=== PATIENT | female | born 1970 | race Caucasian/White ===

== ENCOUNTER 2016-12-15 03:23 | Inpatient (IN) | payer OTHER, SELFPAY ==
[~2016-12-15] VITALS: Ht 172.7 cm; Wt 77.3 kg
[~2016-12-15 03:23] MED LIST: /AMLO25TA PO; /TIOT18INH INH; ACET65TA OR; ALBUTEROL INH INH; AMBI10TA PO; AMBIEN PO; ASPI81TA90 PO; BISA10SU30 PR; BUPROPION PO; BUSPAR PO; CLON0.5T PO; COLA100C2 PO; COMBIN INH; COMBIVENT INH; DEPA250T32 PO; DIPHENHYDRAMINE PO; DOXY-197 PO; DOXY150C PO; DOXY75CA3 PO; DUONSOL INH; FIORICET; FLONASE INH; GUAI200T PO; IBUP200T2 PO; IPRATROPIUM ALBUT INH; KLON0.5T PO; LEVA500T OR; LEVO750T PO; LIDO1DIS2 TD; LYRICA PO; MIRALAX PO; MOM30SS PO; MOTR200T44 PO; MOTRIN PO; MUCI600T34 PO; MUCINEX PO; NEUR300C PO; NICOTINE TD TOP; PERC5TAB8 PO; PERCOCET PO; PHEN 25 PO; PRED10PA PO; PRED10TA PO; PRED10TA2 OR; PRED10TA2 PO; PRED20TA OR; PRED20TA PO; PRED50TA OR; PRED50TA2 PO; PRED5SOL2 PO; PRED5TAB OR; PRIL40CA PO; PROM-190 PO; PROZ20CA PO; SENO8.6T5 OR; SENO8.6T9 PO; SING10TA31 PO; SKEL800T5 PO; SUDAFED PO; SYMB80AE IN; SYMB80AE INH; SYMB80INH INH; TESS100C PO; THEOPHYLLINE PO; TIOT18INH INH; TIZA4CAP PO; TRAZ100T PO; TRAZO50TA PO; VIBR100C PO; XANA0.5T PO; XANAFLEX PO; XOPEAER INH; ZITH500T OR; ZONI50CA PO; [UNRECOGNIZED DRUG - CODE] INH; [UNRECOGNIZED DRUG - CODE] PO; ventolin neb INH
[2016-12-15] MEDS ORDERED: MAG SULF 1GM/100ML (MAG RUN) 1 GM in APPROPRIATE DILUENT 1 EA IV ONE (03:45)
[2016-12-15] MEDS ORDERED: methylPREDNISolone INJ 125 MG/2 ML VIAL (J2930) IV ONE (03:45)
[2016-12-15] MEDS: IPRATROPIUM 0.5MG/ALBUTEROL 2.5MG INH SOL UD 3ML (DUONEB)(J7620) NEB PRN (03:46)
[2016-12-15 04:20] LABS: BASO # 0.1 K/mm3 (0.0-0.2); BASO % 0.8 % (0.0-1.0); EOS # 0.7 K/mm3 (0.0-0.50); EOS % 8.5 % (0.0-3.0); LARGE UNSTAINED CELL # 0.2 K/mm3 (0.0-0.4); LARGE UNSTAINED CELL % 2.7 % (0.0-4.0); LYMPH # 2.7 K/mm3 (1.5-4.5); LYMPH % 32.3 % (24.0-44.0); MEAN CORPUSCULAR HEMOGLOBIN 29.5 pg (27.0-33.0); MEAN CORPUSCULAR HGB CONC 31.9 g/dl (32.0-36.5); MEAN CORPUSCULAR VOLUME 92.6 fl (80.0-96.0); MONO # 0.6 K/mm3 (0.0-0.8); MONO % 7.4 % (0.0-5.0); NEUTROPHILS # 3.7 K/mm3 (1.8-7.7); NEUTROPHILS % 48.3 % (36.0-66.0); PLATELET COUNT, AUTOMATED 517 k/mm3 (150-450); WHITE BLOOD COUNT 7.7 K/mm3 (4.0-10.0)
[2016-12-15 04:45] LABS: ANION GAP 8 MEQ/L (8-16); BLOOD UREA NITROGEN 12 MG/DL (7-18); CALCIUM LEVEL 8.5 MG/DL (8.5-10.1); CARBON DIOXIDE LEVEL 21 MEQ/L (21-32); CHLORIDE LEVEL 113 MEQ/L (98-107); CREATININE FOR GFR 0.48 MG/DL (0.55-1.02); GLOMERULAR FILTRATION RATE > 60.0 (>58); GLUCOSE, FASTING 98 MG/DL (70-105); POTASSIUM SERUM 4.1 MEQ/L (3.5-5.1); SODIUM LEVEL 142 MEQ/L (136-145)
[2016-12-15 05:18] LABS: ABG BASE EXCESS -4.9 (-2.0-2.0); ABG PARTIAL PRESSURE CO2 31.6 mmHg (35.0-45.0); ABG PARTIAL PRESSURE O2 82.2 mmHg (75.0-100.0); ABG STANDARD HCO3 20.4 MEQ/L (22.0-26.0); ABG pH (ARTERIAL) 7.398 UNITS (7.350-7.450)
[2016-12-15] MEDS ORDERED: ALBU17IN INH (05:39)
[2016-12-15] MEDS ORDERED: ASPI1TAB15 PO (05:39)
[2016-12-15] MEDS ORDERED: AMLO5TAB2 PO (05:39)
[2016-12-15] MEDS ORDERED: OXYC1TAB23 PO (05:39)
[2016-12-15] MEDS ORDERED: RANI150T PO (05:39)
[2016-12-15] MEDS ORDERED: IPRASOL4 INH (05:39)
[2016-12-15] MEDS ORDERED: CLON0.5T PO (05:39)
[2016-12-15] MEDS ORDERED: GABA600T PO (05:39)
[2016-12-15] MEDS ORDERED: DEXT75EL PO (05:39)
[2016-12-15] MEDS ORDERED: PROM25TA PO (05:39)
[2016-12-15] MEDS ORDERED: COMBAER6 INH (05:39)
[2016-12-15] MEDS ORDERED: MORPHINE 2 MG/ML 1ML SYRINGE IV ONE ×2 (05:45→19:45)
[2016-12-15] MEDS: NS 1,000 ML IV SCH ×2 (06:14→20:07)
[2016-12-15] MEDS ORDERED: IPRATROPIUM 0.5MG/ALBUTEROL 2.5MG INH SOL UD 3ML (DUONEB)(J7620) NEB PRN (06:15)
[2016-12-15] MEDS ORDERED: zolPIDEM TARTRATE 10MG TAB PO PRN ×2 (06:15→07:00)
[2016-12-15] MEDS ORDERED: ACETAMINOPHEN TAB 650MG DOSE (2X325MG) PO PRN (06:15)
[2016-12-15] MEDS: LevoFLOXacin IV 500 MG in APPROPRIATE DILUENT 1 EA IV SCH (06:42)
[2016-12-15] MEDS ORDERED: DEXTROMETHORPHAN 5 ML SYRUP (ROBITUSSIN PEDIATRIC COUGH) PO PRN (07:00)
[2016-12-15] MEDS ORDERED: PERCOCET 5MG/325MG TAB PO PRN (07:00)
[2016-12-15] MEDS ORDERED: PROMETHAZINE 25 MG TAB PO PRN (07:00)
[2016-12-15] MEDS: PERCOCET 5MG/325MG TAB PO PRN ×3 (07:26→21:56)
[2016-12-15] MEDS: methylPREDNISolone INJ 40 MG/1 ML VIAL (J2920) IV SCH ×4 (07:27→23:05)
[2016-12-15 07:29] LABS: ERYTHROCYTE SEDIMENTATION RATE 15 mm/hr (0-20)
--- NOTE | 2016-12-15 07:31 | HPE ---
DATE OF ADMISSION: 12/15/2016 PRIMARY CARE PROVIDER: Dr. Escobar ATTENDING PHYSICIAN: Dr. Colmenares CHIEF COMPLAINT: Worsening shortness of breath and wheezing. HISTORY OF THE PRESENT ILLNESS: The patient is a 46-year-old white female with a history of asthma as well as chronic obstructive pulmonary disease (COPD), presented to the emergency room (ER) with worsening shortness of breath and wheezing. The history is provided by herself. Per the patient, she smoked a few cigarettes a day for many years and quit recently. She has a history of asthma as well as COPD, but she does not need oxygen supplement routinely. She stated she has 11 times intubation in the past for asthma and COPD exacerbation. She states in the last few weeks, she developed coughing, shortness of breath and wheezing, and she tried to use her inhaler and nebulizer, which did not help much. She states yesterday her breathing became very difficult, and she decided to come to the ER. In the ER, she received multiple nebulizer treatments as well as IV steroids and IV magnesium (mag) sulfate and she feels better, but still wheezing, so medicine service was called for admission. REVIEW OF SYSTEMS: Denies fever. No chills. No headache. No blurred vision. Positive shortness of breath and wheezing and mild cough. No phlegm. No runny nose. No nausea, no vomiting. She feels chest tight and pain, particularly when coughing or deep breathing. No abdominal pain. No diarrhea. No tingling, numbness or weakness in the arms or lower extremities. All other systems were reviewed but negative. PAST MEDICAL HISTORY: 1. Asthma and COPD. 2. Acid reflux. 3. Chronic pain and fibromyalgia. 4. Degenerative joint disease (DJD). PAST SURGICAL HISTORY: 1. Tubal ligation. 2. Splenectomy. 3. Multiple intubation. FAMILY HISTORY: Mom had a history of COPD. ALLERGIES: No known drug allergies. MEDICATIONS: - Ambien 10 mg by mouth for sleep - ibuprofen as needed - Spiriva once a day - Symbicort twice a day - Percocet one tablet every 6 hours as needed - aspirin 81 mg by mouth daily - clonazepam as needed - amlodipine 5 mg by mouth daily - Neurontin 600 mg by mouth three times a day - ranitidine 150 mg by mouth daily PHYSICAL EXAMINATION: VITAL SIGNS: Temperature 98, heart rate 100, respirations 16, blood pressure 120/60, oxygen saturation is 95% on two liters oxygen supplement. GENERAL: She is awake, alert, oriented times three. She is in moderate respiratory distress. HEENT: Atraumatic. Pupils equal, round, reactive to light. No jaundice. Extraocular muscles intact. Ear, nose and throat are normal. No ulcer, no inflammation to mouth, mouth mucosa a little bit dry. NECK: No jugular venous distention (JVD). No bruits. LUNGS: Diffuse wheezing. No crackles. HEART: S1, S2, regular. Mild tachycardia. ABDOMEN: No murmur. Abdomen soft. Bowel sounds positive. Nontender. LOWER EXTREMITIES: She does not have edema in her bilateral lower extremities. NEUROLOGIC: Nonfocal. SKIN: No rash. PSYCHOLOGIC: No acute psychosis. DIAGNOSTIC AND LAB STUDIES: Chest x-ray, CBC and CMP reviewed. IMPRESSION: 1. Acute respiratory failure. 2. Chronic obstructive pulmonary disease and asthma exacerbation. 3. Fibromyalgia and chronic pain. 4. Acid reflux. PLAN: The patient will be admitted to medical-surgical floor. I will treat her with IV steroids, nebulizer and antibiotics for asthma and COPD exacerbation. Will continue her home medications.
[2016-12-15] MEDS: IPRATROPIUM 0.5MG/ALBUTEROL 2.5MG INH SOL UD 3ML (DUONEB)(J7620) NEB SCH ×4 (07:44→20:00)
--- NOTE | 2016-12-15 08:26 | ECGEPIP ---
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
--- NOTE | 2016-12-15 08:47 | REP ---
Clinical: Dyspnea and cough . Comparison: 11/28/2016 . Technique: PA and lateral. Findings: The mediastinum and cardiac silhouette are normal. The lung cano are clear and without acute consolidation, effusion, or pneumothorax. The skeletal structures are intact and normal. Impression: 1. No acute cardiopulmonary process. Signed by Fco Mays MD 12/15/2016 08:37 A
[2016-12-15] MEDS ORDERED: GABAPENTIN 300 MG CAP PO SCH (09:00)
[2016-12-15] MEDS: TIOTROPIUM INHALER/CAPSULE (SPIRIVA) INH SCH (09:40)
[2016-12-15] MEDS: SYMBICORT 80/4.5MCG INHALER 6GM INH SCH ×2 (09:40→19:24)
[2016-12-15] MEDS: ENOXAPARIN 40 MG/0.4 ML SYRINGE (J1650) SC SCH (09:41)
[2016-12-15] MEDS: clonazePAM 0.5 MG TAB PO SCH ×2 (09:41→20:07)
[2016-12-15] MEDS: amLODIPine 5 MG TAB PO SCH (09:42)
[2016-12-15] MEDS: ASPIRIN 81 MG ENTERIC TAB PO SCH (09:42)
[2016-12-15] MEDS: FAMOTIDINE 20 MG TAB PO SCH (09:42)
[2016-12-15 12:35] VITALS: BP 132/79
[2016-12-15] MEDS ORDERED: DEXTROMETHORPHAN 60MG/10ML SUSP 90ML BTL(DELSYM) PO PRN ×2 (17:15)
[2016-12-15] MEDS: GABAPENTIN 300 MG CAP PO SCH ×2 (17:16→20:06)
[2016-12-15 19:25] VITALS: BP 135/76
[2016-12-15 22:00] VITALS: BP 121/62
[2016-12-15] MEDS ORDERED: ALPRAZolam 0.5 MG TAB PO PRN (22:45)
[2016-12-16] MEDS: IPRATROPIUM 0.5MG/ALBUTEROL 2.5MG INH SOL UD 3ML (DUONEB)(J7620) NEB SCH (05:37)
[2016-12-16] MEDS: methylPREDNISolone INJ 40 MG/1 ML VIAL (J2920) IV SCH (05:58)
[2016-12-16] MEDS: LevoFLOXacin IV 500 MG in APPROPRIATE DILUENT 1 EA IV SCH (05:59)
[2016-12-16] MEDS: PERCOCET 5MG/325MG TAB PO PRN ×2 (05:59→10:08)
[2016-12-16 06:00] VITALS: BP 123/65
[2016-12-16 06:20] LABS: MEAN CORPUSCULAR HEMOGLOBIN 29.4 pg (27.0-33.0); MEAN CORPUSCULAR HGB CONC 30.9 g/dl (32.0-36.5); MEAN CORPUSCULAR VOLUME 94.9 fl (80.0-96.0); RED CELL DISTRIBUTION WIDTH 17.1 % (11.5-14.5); WHITE BLOOD COUNT 13.2 K/mm3 (4.0-10.0)
[2016-12-16 06:30] LABS: ANION GAP 9 MEQ/L (8-16); BLOOD UREA NITROGEN 11 MG/DL (7-18); CALCIUM LEVEL 8.6 MG/DL (8.5-10.1); CARBON DIOXIDE LEVEL 19 MEQ/L (21-32); CHLORIDE LEVEL 113 MEQ/L (98-107); GLOMERULAR FILTRATION RATE > 60.0 (>58); GLUCOSE, FASTING 170 MG/DL (70-105); POTASSIUM SERUM 4.1 MEQ/L (3.5-5.1); SODIUM LEVEL 141 MEQ/L (136-145)
--- NOTE | 2016-12-16 06:48 | ECGEPIP ---
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
[2016-12-16] MEDS: SYMBICORT 80/4.5MCG INHALER 6GM INH SCH (08:09)
[2016-12-16] MEDS ORDERED: PRED10TA2 PO (08:25)
[2016-12-16] MEDS ORDERED: COMBIVENT RESPIMAT 100-20MCG INHALER 4GM INH SCH (09:00)
[2016-12-16] MEDS: ENOXAPARIN 40 MG/0.4 ML SYRINGE (J1650) SC SCH (09:00)
[2016-12-16] MEDS: clonazePAM 0.5 MG TAB PO SCH (09:02)
[2016-12-16] MEDS: FAMOTIDINE 20 MG TAB PO SCH (09:02)
[2016-12-16] MEDS: GABAPENTIN 300 MG CAP PO SCH (09:02)
[2016-12-16] MEDS: ASPIRIN 81 MG ENTERIC TAB PO SCH (09:02)
[2016-12-16 09:03] VITALS: BP 139/75
[2016-12-16] MEDS: amLODIPine 5 MG TAB PO SCH (09:03)
[2016-12-16] MEDS: TIOTROPIUM INHALER/CAPSULE (SPIRIVA) INH SCH ×2 (10:47→10:52)
--- NOTE | 2016-12-16 14:00 | DSES ---
DATE OF ADMISSION: 12/15/2016 DATE OF DISCHARGE: 12/16/2016 DISCHARGE DIAGNOSIS: Decompensated asthma. SECONDARY DIAGNOSES: 1. Anxiety. 2. Gastroesophageal reflux disease. 3. Chronic pain/fibromyalgia. 4. Degenerative joint disease. 5. Hypertension. 6. Insomnia. HOSPITAL COURSE: The patient is a 46-year-old female with a history of asthma. She reports being intubated on numerous occasions in the past after having exacerbations of her asthma related to seasonal changes; however, she lives with a boyfriend and is present around people who smoke cigarettes, although she no longer smokes herself. She previously followed in the pulmonary clinic, but missed followup appointments and was discharged from the practice. She is in the process of being rereferred to them to see if she once again receive care there. She has a history of pulmonary nodules, previously followed by Dr. Pitts. The patient presented to the emergency room with shortness of breath and worsening asthma. She was started on IV Solu-Medrol and nebulizer treatments and admitted to the medical/surgical floor. She did improve quite quickly to the point where she was up and ambulating and maintaining oxygen saturations greater than 90%. Her cough did improve. She did not have fever and she did not have leukocytosis prior to steroid administration. Blood cultures were negative after 24 hours. A respiratory PCR panel was negative for any viral infections as well. The patient was improved to her functional baseline. SUBJECTIVE: This morning, the patient reports that she still has a cough and she still has intermittent episodes of shortness of breath, but she is significantly better than when she presented to the hospital. OBJECTIVE: VITAL SIGNS: Temperature 99.1, pulse 97, respiratory rate 20, blood pressure 123/65, oxygen saturation 94% on room air. GENERAL: She is a mildly disheveled, middle-aged female sitting up in bed. She does not appear to be in acute distress. HEENT: Cranials II-XII are grossly intact. She has moist mucous membranes. No elevation of CVP. CARDIOVASCULAR EXAM: S1, S2, regular. RESPIRATORY EXAM: Clear. No wheeze. ABDOMINAL EXAM: Benign. EXTREMITIES: No clubbing, cyanosis or edema. LABORATORY STUDIES: WBC 13.2 after receiving steroids, hemoglobin 10.4, platelet count 412. Chemistry panel with sodium 141, potassium 4.1, chloride 113, bicarbonate 19, BUN 11, creatinine 0.6. Two sets of cardiac enzymes were negative. CRP was less than 0.03. ESR was 15. Blood gas revealed a pH of 7.3, pCO2 31.6 and pO2 of 82.2. IMAGING: The patient did have a chest x-ray that revealed no acute cardiopulmonary processes. ASSESSMENT AND PLAN: This is a 46-year-old female with decompensated asthma. PROBLEMS: 1. Decompensated asthma. The patient is at her functional baseline. She is not requiring oxygen. She is tolerating medications by mouth. She is being discharged home to the care of her family. She is disheveled. She is significantly anxious, which may be playing a role in her shortness of breath. I do have concerns for substance abuse as well. She is to follow up with the [facility] within 7 days and to followup with pulmonary as soon as possible. Her activities are as prior to admission. Her diet is as prior to admission. She is to avoid tobacco products. MEDICATIONS AT TIME OF DISCHARGE: - prednisone taper - Ventolin HFA 2 puffs every 4 hours as needed for shortness of breath - Combivent 1 puff four times daily - DuoNebs every 6 hours as needed for shortness of breath - Norvasc 5 mg daily - aspirin 81 mg daily - Symbicort 2 puffs inhaled twice a day - clonazepam 0.5 mg twice a day - Robitussin 10 mL every 8 hours as needed for cough - gabapentin 1200 mg three times a day - ibuprofen 400 mg every 6 hours as needed for pain - Percocet 5/325 one tablet every 6 hours as needed for pain - promethazine 25 mg every 4 hours as needed for nausea - ranitidine 150 mg daily - Spiriva 2 inhalations HandiHaler daily - Ambien 10 mg at bedtime as needed for sleep Greater than 30 minutes spent organizing disposition.
== END 2016-12-16 12:56 | disposition home or self-care (01) | DRG 202 ==
LOC: M ED 03:23 → EDBD 03:23 → M ED INP 06:14 → M MSPAV 12:30
PROVIDERS: ADMIT Hospitalist; ATTEND Internal Medicine
DX: J45.901 Unspecified asthma with (acute) exacerbation (principal); J96.00 Acute respiratory failure, unspecified whether with hypoxia or hypercapnia; J44.1 Chronic obstructive pulmonary disease with (acute) exacerbation; K21.9 Gastro-esophageal reflux disease without esophagitis; M79.7 Fibromyalgia; G47.00 Insomnia, unspecified; I10 Essential (primary) hypertension; M19.90 Unspecified osteoarthritis, unspecified site; G89.29 Other chronic pain; Z87.891 Personal history of nicotine dependence; Z79.899 Other long term (current) drug therapy; Z79.82 Long term (current) use of aspirin

== ENCOUNTER 2017-04-28 17:07 | Emergency (ER) | payer OTHER ==
[~2017-04-28] VITALS: Ht 172.7 cm; Wt 86.4 kg
[~2017-04-28 17:07] MED LIST changes: +ALBU17IN INH; +AMLO5TAB2 PO; +ASPI1TAB15 PO; +COMBAER6 INH; +DEXT75EL PO; +GABA600T PO; +IPRASOL4 INH; +OXYC1TAB23 PO; +PROM25TA PO; +RANI150T PO
[2017-04-28] MEDS ORDERED: HYDR25TAB (17:25)
[2017-04-28] MEDS ORDERED: methylPREDNISolone INJ 125 MG/2 ML VIAL (J2930) IV ONE (17:45)
[2017-04-28 18:20] LABS: VENOUS BASE EXCESS 0.7 (-2.0-2.0); VENOUS O2 SATURATION 63.8 % (60.0-80.0); VENOUS PARTIAL PRESSURE CO2 43.9 mmHg (38.0-50.0); VENOUS STANDARD HCO3 24.4 MEQ/L; VENOUS TOTAL CO2 27.3 MEQ/L (24.0-28.0)
[2017-04-28 18:22] LABS: BASO % 0.2 % (0.0-1.0); EOS # 0.4 10^3/uL (0.0-0.50); EOS % 3.4 % (0.0-3.0); IMMATURE GRANULOCYTE % 0.5 % (0-0); LYMPH # 2.4 10^3/uL (1.5-4.5); LYMPH % 22.8 % (24.0-44.0); MEAN CORPUSCULAR HEMOGLOBIN 29.3 pg (27.0-33.0); MEAN CORPUSCULAR VOLUME 91.7 fl (80.0-96.0); NEUTROPHILS # 6.8 10^3/uL (1.8-7.7); NEUTROPHILS % 64.1 % (36.0-66.0); PLATELET COUNT, AUTOMATED 362 10^3/uL (150-450); RED CELL DISTRIBUTION WIDTH 18.9 % (11.5-14.5); WHITE BLOOD COUNT 10.6 10^3/uL (4.0-10.0)
[2017-04-28] MEDS: IPRATROPIUM 0.5MG/ALBUTEROL 2.5MG INH SOL UD 3ML (DUONEB)(J7620) NEB PRN ×2 (18:35→18:36)
[2017-04-28 18:41] LABS: INR 0.96
--- NOTE | 2017-04-28 18:41 | ECGEPIP ---
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
--- NOTE | 2017-04-28 18:45 | REP ---
CHEST X-RAY, PA AND LATERAL: 04/28/2017. Clinical history: Dyspnea and cough. Comparison: 04/21/2017, 12/15/2016, CTA chest 11/28/2016. Findings: Lungs are well inflated. There is prominence of the retrosternal clear space with increased AP diameter. This may reflect some mild COPD. There is no infiltrate, effusion, atelectasis or mass. The heart, mediastinal and hilar contours are normal. Airway and aorta intact. Bony thorax shows no acute compression deformity. Impression: 1. No acute cardiopulmonary change. Mild hyperinflation that may reflect some COPD or reactive airway disease. Signed by Blaise Wilkerson MD 04/28/2017 08:03 P
[2017-04-28 20:41] LABS: ANION GAP 7 MEQ/L (8-16); BLOOD UREA NITROGEN 8 MG/DL (7-18); CALCIUM LEVEL 9.2 MG/DL (8.5-10.1); CARBON DIOXIDE LEVEL 26 MEQ/L (21-32); CHLORIDE LEVEL 107 MEQ/L (98-107); CREATININE FOR GFR 0.45 MG/DL (0.55-1.02); GLOMERULAR FILTRATION RATE > 60.0 (>58); GLUCOSE, FASTING 137 MG/DL (70-105); POTASSIUM SERUM 4.1 MEQ/L (3.5-5.1); SODIUM LEVEL 140 MEQ/L (136-145)
[2017-04-28] MEDS ORDERED: ISOVUE-370 76% 100ML VIAL (Q9967) As Ordered ONE (20:50)
--- NOTE | 2017-04-28 22:50 | REPUSA ---
CT angiogram of the chest Clinical statement: Chest pain and shortness of breath. Technique: Multiple axial CT images were obtained from the thoracic inlet through the upper abdomen a fter a bolus administration of nonionic intravenous contrast. Coronal and sagittal reconstructions we re also obtained. No comparison is available. Findings: The pulmonary arteries are well-opacified with contrast, with no intraluminal filling defec ts to suggest embolism. The thoracic aorta is unremarkable. Thyroid gland is within normal limits. Th ere is no thoracic lymphadenopathy. There are no pericardial or pleural effusions. The lungs are hiro r. Limited imaging of the upper abdomen is unremarkable. There are no suspicious osseous lesions. Impression: Unremarkable CT examination of the chest. No evidence of pulmonary embolism.
[2017-04-28] MEDS ORDERED: PRED20TA PO (23:03)
[2017-04-28 23:24] VITALS: BP 122/74
== END 2017-04-28 23:28 | disposition home or self-care (01) ==
LOC: M ED 17:07
DX: J44.1 Chronic obstructive pulmonary disease with (acute) exacerbation (principal); R00.0 Tachycardia, unspecified; R94.31 Abnormal electrocardiogram [ECG] [EKG]; J45.909 Unspecified asthma, uncomplicated; G43.909 Migraine, unspecified, not intractable, without status migrainosus; M79.7 Fibromyalgia; F17.200 Nicotine dependence, unspecified, uncomplicated; Z79.82 Long term (current) use of aspirin; Z79.899 Other long term (current) drug therapy
CPT/HCPCS: 36415; 71020; 71275; 80048; 82550; 82553; 82803; 84436; 84443; 85025; 85379; 85610; 93005; 93041; 94640; 96374; 99285; J2930; Q9967

== ENCOUNTER → 2017-11-26 | Outpatient (CLI) | payer OTHER | LOC: M PAIN 10:45 | DX: M79.7 Fibromyalgia (principal); G89.29 Other chronic pain; J44.9 Chronic obstructive pulmonary disease, unspecified; I10 Essential (primary) hypertension; F17.210 Nicotine dependence, cigarettes, uncomplicated; K21.9 Gastro-esophageal reflux disease without esophagitis; Z79.899 Other long term (current) drug therapy; Z86.73 Personal history of transient ischemic attack (TIA), and cerebral infarction without residual deficits; Z91.81 History of falling; Z86.79 Personal history of other diseases of the circulatory system | CPT/HCPCS: G0463 ==

== ENCOUNTER 2018-04-02 14:44 | Emergency (ER) | payer OTHER ==
[2018-04-02] MEDS: PERCOCET 5MG/325MG TAB PO (16:08)
== END 2018-04-02 16:14 | disposition home or self-care (01) ==
LOC: M ED 14:44
DX: S46.911A Strain of unspecified muscle, fascia and tendon at shoulder and upper arm level, right arm, initial encounter (principal); S83.8X1A Sprain of other specified parts of right knee, initial encounter; X50.9XXA Other and unspecified overexertion or strenuous movements or postures, initial encounter; Y92.89 Other specified places as the place of occurrence of the external cause; M62.830 Muscle spasm of back; I10 Essential (primary) hypertension; J45.909 Unspecified asthma, uncomplicated; J44.9 Chronic obstructive pulmonary disease, unspecified; E11.9 Type 2 diabetes mellitus without complications; I25.2 Old myocardial infarction; M79.7 Fibromyalgia; M81.0 Age-related osteoporosis without current pathological fracture; M19.90 Unspecified osteoarthritis, unspecified site; Z87.891 Personal history of nicotine dependence; Z79.82 Long term (current) use of aspirin; Z79.899 Other long term (current) drug therapy; Z86.73 Personal history of transient ischemic attack (TIA), and cerebral infarction without residual deficits; Z87.820 Personal history of traumatic brain injury
CPT/HCPCS: 72110

== ENCOUNTER 2018-04-07 14:55 | Emergency (ER) | payer OTHER | END 2018-04-07 17:40 | disposition home or self-care (01) | LOC: M ED 14:55 | DX: S39.012A Strain of muscle, fascia and tendon of lower back, initial encounter (principal); X50.9XXA Other and unspecified overexertion or strenuous movements or postures, initial encounter; Y92.89 Other specified places as the place of occurrence of the external cause; Y93.E6 Activity, residential relocation; J45.909 Unspecified asthma, uncomplicated; M54.9 Dorsalgia, unspecified; G89.29 Other chronic pain; E11.9 Type 2 diabetes mellitus without complications; I10 Essential (primary) hypertension; I25.2 Old myocardial infarction; M79.7 Fibromyalgia; K21.9 Gastro-esophageal reflux disease without esophagitis; F33.9 Major depressive disorder, recurrent, unspecified; F41.9 Anxiety disorder, unspecified; Z86.69 Personal history of other diseases of the nervous system and sense organs; Z86.73 Personal history of transient ischemic attack (TIA), and cerebral infarction without residual deficits; Z87.891 Personal history of nicotine dependence; Z79.82 Long term (current) use of aspirin; Z90.49 Acquired absence of other specified parts of digestive tract; Z87.442 Personal history of urinary calculi; Z79.899 Other long term (current) drug therapy; Z88.5 Allergy status to narcotic agent | CPT/HCPCS: 99283 ==